=== PATIENT | female | born 1980 | race African-American/Black ===

== ENCOUNTER 2017-08-15 11:00 | Inpatient (IN) | payer OTHER ==
[~2017-08-15] VITALS: Ht 157.5 cm; Wt 79.8 kg
--- NOTE | ~2017-08-15 | H ---
[facility] [place] [address] HISTORY AND PHYSICAL Name: DANA ROSAS NELSY Room #: 420-P ADM IN M.R.#: [id number] Admission: 08/15/17 Attend Phys: Diana Adamson Discharge: Date of : 84 Report #: [id number] THIS REPORT FOR: //name// CC: Jason Michaels DATE OF SERVICE: 08/15/2017 CHIEF COMPLAINT: Stiff jaw. HISTORY OF PRESENT ILLNESS: The patient is a 37-year-old female from [facility] who was admitted to address her jaw and mouth guard issue. I spoke to her , obtained the history because she suffered a brain injury some time ago. Essentially, she has suffered anoxic brain event from what he describes and has been in and out of multiple hospitals and LTAC facilities. She transferred to [facility] about 6 weeks ago for long-term care due to chronic tracheostomy tube and PEG tube. Her reports that some months ago while at another hospital, she had issues with biting her tongue. At that point, plastic mouth guard was placed on both upper and lower teeth. He said initially they were able to get her mouth open to clean and replace the device, but is not sure how long ago that was. In the last week or two, it has been more of an issue at the facility. It is now to the point where they are unable to get her jaw open to perform oral care or to remove the 2 dental guards. She has been admitted for assessment. PAST MEDICAL HISTORY: Anoxic brain injury. PAST SURGICAL HISTORY: Trach and PEG and otherwise unknown. FAMILY HISTORY: Unknown. SOCIAL HISTORY: She was . ALLERGIES: Unknown. MEDICATIONS: Metoprolol, Pepcid, Tylenol, MiraLax. REVIEW OF SYSTEMS: She is unable to give review. PHYSICAL EXAMINATION: VITAL SIGNS: Per the nursing note. GENERAL: She opens her eyes to verbal or physical stimuli, but does not seem to focus. HEENT: She has clenched teeth. I tried to manually open her jaw, which was unable. She clenches her lips. She had a tracheostomy capped in place. I do not feel a mass or enlargement of the masseter muscles or the neck. LUNGS: Clear anteriorly. [facility] [address] [place] [address] HISTORY AND PHYSICAL Name: DANA ROSAS [facility] Room #: 420-P [facility] IN ..#: [id number] Admission: 08/15/17 Attend Phys: Diana Adamson Discharge: Date of : 84 Report #: [id number] HEART: Regular. ABDOMEN: Soft, normoactive bowel sounds and PEG tube. EXTREMITIES: Nonpitting edema. She has contractures of the arms and hands, especially the left. There is some resisted stiff movement at the elbows. It is very tight at the shoulders. ASSESSMENT: 1. Anoxic brain injury. 2. Multiple joint contractures including the jaw. 3. Chronic tracheostomy tube. 4. Chronic PEG tube. PLAN: For now, continue her medications from home and obtain baseline lab work and x-ray along with a CT of the jaw. This is a challenge to find a solution here. I will add baclofen to see if this will provide loosening in order to perform oral care. Ultimately, may need help with sedation procedure to clean her mouth, but this will still leave the long-term issue in question. There is no clear solution. I see that she has do not resuscitate orders from the facility, which will be continued here. <ELECTRONICALLY SIGNED> By: Addy Zavaleta MD 08/15/17 1627 [id number] Addy Zavaleta MD /nt
--- NOTE | ~2017-08-15 | D ---
[facility] [place] [address] DISCHARGE SUMMARY Name: DANA ROSAS NELSY Room #: 420-P [facility] IN M.R.#: [id number] Admission: 08/15/17 Attend Phys: Diana Adamson Discharge: 08/18/17 Date of : 84 Report #: [id number] THIS REPORT FOR: //name// CC: Jason Michaels FINAL DIAGNOSIS: Anoxic brain injury syndrome. HOSPITAL COURSE: The patient was admitted for an attempted evaluation of a jaw contracture, which was preventing oral care. She also has had a previous dental guard placed at another facility to protect her tongue from her clenching or biting down due to her neurologic condition. Unfortunately, after I conferred with multiple specialists in the hospital, there was no one available who had a solution to her problem or potential short-term treatment. Oral surgery is not available at this hospital and no other interventions were entertained. I attempted medication usage with baclofen, hydrocodone and Ativan without any improvement of the contracture and stiffness of her jaw. This prevented any manual opening of her mouth to remove the dental guard or provide oral care. I did add antibiotics to try to decrease the oral bacterial load. Ultimately, she will need referral to a facility inpatient gan with oral surgery options. DISPOSITION: She is returning to [facility] facility. Continue all her usual care. Medications have been signed. I have spoken to the facility liaison about referral to another facility. <ELECTRONICALLY SIGNED> By: Addy Zavaleta MD 08/26/17 0836 [id number] Addy Zavaleta MD /nt
[2017-08-15 11:15] VITALS: BP 113/80
[2017-08-15 13:21] LABS: HEMATOCRIT 33.6 % (37.0-47.0); HEMOGLOBIN 10.8 gm/dL (12.0-15.0); MCH 25.2 pg (26.0-34.0); MCHC 32.2 g/dL (28.0-37.0); MCV 78.3 fL (80.0-100.0); RBC 4.3 mil/uL (4.20-5.00); RDW 16.6 % (10.5-14.5); WBC 11.1 thou/uL (4.0-11.0)
[2017-08-15 13:29] LABS: CREATININE 0.5 mg/dL (0.6-1.0)
[2017-08-15 14:29] LABS: BE(vivo) 2.5 mmol/L (-2 to +3); HCO3 25.3 mmol/L (22.0-26.0); PCO2 33.3 mmHg (35.0-45.0); PO2 60.2 mmHg (80.0-100.0); pH 7.499 (7.360-7.450); sO2 93.3 % (92.0-98.0)
[2017-08-15 19:54] VITALS: BP 118/79
[2017-08-16 04:20] VITALS: BP 101/64
[2017-08-16 11:38] VITALS: BP 91/56
[2017-08-16 16:27] VITALS: BP 102/66
[2017-08-16 19:15] VITALS: BP 120/79
[2017-08-17 04:50] VITALS: BP 104/67
[2017-08-17 07:20] VITALS: BP 105/64
[2017-08-17 20:00] VITALS: BP 122/78
[2017-08-18 04:30] VITALS: BP 112/72
[2017-08-18 08:00] VITALS: BP 117/75
[2017-08-18] MEDS ORDERED: DUONEB 2.5-0.5 M3 ML INH (11:08)
[2017-08-18] MEDS ORDERED: VEETIDS 250MG250 M1 PER TUBE (11:08)
[2017-08-18] MEDS ORDERED: PERIDEX 0.12%473 M1 MUCOUS MEM (11:08)
[2017-08-18] MEDS ORDERED: ACETAMINOPHEN325 M1 PO (11:08)
[2017-08-18] MEDS ORDERED: SCOPOLAMINE1 EACH TRANSDERM (11:09)
[2017-08-18 12:44] VITALS: BP 107/71
== END 2017-08-18 16:15 | DRG 92 ==
LOC: 4E 12:12
PROVIDERS: Internal Medicine Geriatric Medicine
DX: G93.1 Anoxic brain damage, not elsewhere classified (principal); J96.10 Chronic respiratory failure, unspecified whether with hypoxia or hypercapnia; M24.50 Contracture, unspecified joint; Z93.1 Gastrostomy status; Z93.0 Tracheostomy status; Z79.899 Other long term (current) drug therapy
CPT/HCPCS: 10783